=== PATIENT | female | born 1960 | race African-American/Black ===

== ENCOUNTER 2018-08-16 18:26 | Emergency (ER) | payer MEDICARE, MEDICAID ==
[~2018-08-16] VITALS: Ht 162.6 cm; Wt 117.0 kg
[2018-08-17] MEDS ORDERED: DIPHENHYDRAMINE 50MG CAPSULE PO ONE (00:45)
[2018-08-17] MEDS ORDERED: PREDNISONE 20MG TABLET PO ONE (00:45)
[2018-08-17 01:10] VITALS: BP 164/97
== END 2018-08-17 01:16 | disposition home or self-care (01) ==
LOC: ER 18:26
DX: L40.9 Psoriasis, unspecified (principal); E11.9 Type 2 diabetes mellitus without complications; I10 Essential (primary) hypertension; R60.0 Localized edema; Z86.73 Personal history of transient ischemic attack (TIA), and cerebral infarction without residual deficits; Z88.8 Allergy status to other drugs, medicaments and biological substances
CPT/HCPCS: 99283; J7512; Q0163

== ENCOUNTER 2020-05-05 17:07 | Inpatient (IN) | payer MEDICARE, MEDICAID ==
[~2020-05-05] VITALS: Ht 162.6 cm; Wt 90.3 kg
[~2020-05-05 17:07] MED LIST: AMLO10TA4 MT; ASPI-1497 MT; ATEN50TA MT; HYDR-4135 MT; HYDR25TA MT; SIMV-43 MT; SITA100T11 MT
[2020-05-05 19:30] LABS: MEAN CORPUSCULAR HEMOGLOBIN 31.4 pg (28.0-32.0); MEAN CORPUSCULAR VOLUME 98.7 fL (81.0-99.0); MEAN PLATELET VOLUME 8.4 fl (7.4-10.4); PLATELET 233 x1000/uL (130-400); RED BLOOD CELL COUNT 1.37 mill/uL (4.2-5.4); RED CELL DISTRIBUTION WIDTH 17.1 % (11.6-14.6)
[2020-05-05 19:35] LABS: CHLORIDE 108 mEq/L (98-107)
[2020-05-05 19:57] LABS: HEMATOCRIT. 13.6 % (36.0-48.0); HEMOGLOBIN. 4.3 g/dL (12.0-16.0)
[2020-05-05] MEDS ORDERED: INSULIN REGULAR (HUMULIN R) 300UNITS/3ML VIAL IV ONE (20:15)
[2020-05-05] MEDS ORDERED: ALBUTEROL (0.083%) 2.5MG/3ML NEB HHN ONE (20:15)
[2020-05-05] MEDS ORDERED: SODIUM BICARBONATE 8.4% 1 MEQ/ML 50ML SYR IV ONE (20:15)
[2020-05-05] MEDS ORDERED: CALCIUM GLUCONATE 1,000 MG in DEXT 5% WATER 100 ML IV ONE (20:15)
[2020-05-05] MEDS ORDERED: DEXTROSE 50% WATER 50ML SYRINGE IV ONE (20:15)
[2020-05-05 20:29] LABS: NUCLEATED RED BLOOD CELLS 5 /100 WBC; PLATELET ESTIMATE NORMAL
[2020-05-05] MEDS ORDERED: MAGNESIUM/ALUMINUM HYDROXIDE/SIMETHICONE 30ML UDC PO PRN (22:00)
[2020-05-05] MEDS ORDERED: ONDANSETRON HCL 4MG/2ML INJ IV PRN (22:00)
[2020-05-05] MEDS: PANTOPRAZOLE SODIUM 40 MG/VIAL IV SCH (22:00)
[2020-05-05] MEDS ORDERED: GUAIFENESIN 200MG/10ML SUGAR FREE UDC PO PRN (22:00)
[2020-05-05] MEDS ORDERED: ACETAMINOPHEN 325MG TABLET PO PRN ×2 (22:00)
[2020-05-05] MEDS ORDERED: IPRATROPIUM/ALBUTEROL 0.5-3(2.5)MG/3ML NEB NEB PRN (22:00)
[2020-05-05] MEDS ORDERED: TRAMADOL 50MG TABLET PO PRN (22:00)
[2020-05-05] MEDS ORDERED: NITROGLYCERIN 0.4MG TABLET SL SL PRN (22:00)
[2020-05-05] MEDS ORDERED: DOCUSATE SODIUM 100MG CAPSULE PO PRN (22:00)
[2020-05-05] MEDS ORDERED: DEXTROSE 50% WATER 50ML SYRINGE IV PRN (22:00)
[2020-05-05 22:27] LABS: FOLIC ACID (FOLATE) SERUM 8.4 ng/mL (>5.38)
[2020-05-05 22:41] LABS: CREATINE KINASE 85 IU/L (26-192)
[2020-05-05 22:42] LABS: CREATINE KINASE MB FRACTION 4.6 ng/mL (0.5-3.6)
[2020-05-06] VITALS (16 sets, daily range): BP systolic 119–183; BP diastolic 56–92
[2020-05-06] MEDS ORDERED: SODIUM POLYSTYRENE SULFONATE 15 G/60 ML BOT PO PRN (02:00)
[2020-05-06] MEDS ORDERED: LACTULOSE 20G/30ML UDC PO PRN (02:00)
[2020-05-06] MEDS ORDERED: GLIP5TAB12 PO (02:20)
[2020-05-06] MEDS: FUROSEMIDE 20MG/2ML VIAL IVP SCH ×3 (02:38→23:18)
[2020-05-06] MEDS: AMLODIPINE 5MG TABLET PO SCH ×3 (02:40→23:18)
[2020-05-06] MEDS ORDERED: EPOETIN ALFA-EPBX 4,000 UNIT/ML VIAL SUBCUT SCH (03:00)
[2020-05-06 03:32] LABS: MEAN CORPUSCULAR HEMOGLOBIN 31.2 pg (28.0-32.0); MEAN CORPUSCULAR VOLUME 98.4 fL (81.0-99.0); PLATELET 222 x1000/uL (130-400); RED BLOOD CELL COUNT 1.37 mill/uL (4.2-5.4); RED CELL DISTRIBUTION WIDTH 16.3 % (11.6-14.6)
[2020-05-06 03:39] LABS: HEMATOCRIT. 13.5 % (36.0-48.0); HEMOGLOBIN. 4.3 g/dL (12.0-16.0)
[2020-05-06 03:47] LABS: CHLORIDE 108 mEq/L (98-107)
[2020-05-06 03:56] LABS: CREATINE KINASE 320 IU/L (26-192)
[2020-05-06 04:15] LABS: CREATINE KINASE MB FRACTION 5.9 ng/mL (0.5-3.6)
[2020-05-06 04:17] LABS: PHOSPHORUS 13.6 mg/dL (2.5-4.9)
[2020-05-06 04:25] LABS: NUCLEATED RED BLOOD CELLS 11 /100 WBC; PLATELET ESTIMATE NORMAL
[2020-05-06] MEDS: INSULIN LISPRO 100 UNITS/ML SUBCUT SCH ×4 (08:00→21:00)
[2020-05-06] MEDS: BLOOD SUGAR DIAGNOSTIC STRIP TEST SCH ×4 (08:07→21:00)
[2020-05-06] MEDS ORDERED: PATIENT OWN MEDICATION PO SCH (09:00)
[2020-05-06] MEDS: ZINC SULFATE 220 MG ( 50 ) CAPSULE PO SCH (09:03)
[2020-05-06] MEDS: CITRIC ACID/SODIUM CITRATE SOLN 15ML UDC PO SCH ×3 (09:03→18:07)
[2020-05-06] MEDS: PANTOPRAZOLE SODIUM 40 MG/VIAL IV SCH (09:03)
[2020-05-06] MEDS: METOPROLOL TARTRATE 25MG TABLET PO SCH ×2 (09:04→23:17)
[2020-05-06] MEDS: ASCORBIC ACID 500 MG TABLET PO SCH ×2 (09:04→23:17)
[2020-05-06] MEDS ORDERED: *PATIENT'S OWN MEDICATION STORAGE XX SCH (09:30)
[2020-05-06] MEDS ORDERED: HEPARIN 1000 UNITS/ML 10ML ONE (10:27)
[2020-05-06] MEDS ORDERED: LIDOCAINE HCL 1% 20ML VIAL (Pyxis) INJ ONE (10:27)
[2020-05-06] MEDS: HYDRALAZINE HCL 50MG TABLET PO SCH (18:07)
[2020-05-07] VITALS (16 sets, daily range): BP systolic 134–175; BP diastolic 57–83
[2020-05-07] MEDS: HYDRALAZINE HCL 50MG TABLET PO SCH ×3 (04:09→17:53)
[2020-05-07] MEDS: INSULIN LISPRO 100 UNITS/ML SUBCUT SCH ×4 (08:00→21:00)
[2020-05-07] MEDS: BLOOD SUGAR DIAGNOSTIC STRIP TEST SCH ×4 (08:10→21:00)
[2020-05-07] MEDS: CITRIC ACID/SODIUM CITRATE SOLN 15ML UDC PO SCH ×3 (08:41→17:26)
[2020-05-07] MEDS: AMLODIPINE 5MG TABLET PO SCH ×2 (08:41→23:34)
[2020-05-07] MEDS: ASCORBIC ACID 500 MG TABLET PO SCH ×2 (08:41→23:34)
[2020-05-07] MEDS: ZINC SULFATE 220 MG ( 50 ) CAPSULE PO SCH (08:41)
[2020-05-07] MEDS: PANTOPRAZOLE SODIUM 40 MG/VIAL IV SCH (08:41)
[2020-05-07] MEDS: METOPROLOL TARTRATE 25MG TABLET PO SCH ×2 (08:42→23:35)
[2020-05-07] MEDS: FUROSEMIDE 20MG/2ML VIAL IVP SCH ×2 (08:42→23:35)
[2020-05-07 10:15] LABS: MEAN CORPUSCULAR HEMOGLOBIN 30.2 pg (28.0-32.0); MEAN CORPUSCULAR VOLUME 91.6 fL (81.0-99.0); PLATELET 184 x1000/uL (130-400); RED BLOOD CELL COUNT 2.04 mill/uL (4.2-5.4); RED CELL DISTRIBUTION WIDTH 16.6 % (11.6-14.6)
[2020-05-07 10:55] LABS: HEMATOCRIT 18.7 % (36.0-48.0); HEMOGLOBIN 6.1 g/dL (12.0-16.0)
[2020-05-07] MEDS: ZOLPIDEM TARTRATE 5MG TABLET PO PRN (23:34)
[2020-05-08] VITALS (16 sets, daily range): BP systolic 152–167; BP diastolic 64–83
[2020-05-08] MEDS: HYDRALAZINE HCL 50MG TABLET PO SCH ×3 (04:46→18:00)
[2020-05-08] MEDS: BLOOD SUGAR DIAGNOSTIC STRIP TEST SCH ×4 (07:30→21:00)
[2020-05-08] MEDS: INSULIN LISPRO 100 UNITS/ML SUBCUT SCH ×4 (08:00→21:00)
[2020-05-08] MEDS: ZINC SULFATE 220 MG ( 50 ) CAPSULE PO SCH (08:52)
[2020-05-08] MEDS: ASCORBIC ACID 500 MG TABLET PO SCH ×2 (08:52→22:37)
[2020-05-08] MEDS: CITRIC ACID/SODIUM CITRATE SOLN 15ML UDC PO SCH ×3 (08:52→17:41)
[2020-05-08] MEDS: PANTOPRAZOLE SODIUM 40 MG/VIAL IV SCH (08:52)
[2020-05-08] MEDS: FUROSEMIDE 20MG/2ML VIAL IVP SCH ×2 (09:00→22:36)
[2020-05-08] MEDS: AMLODIPINE 5MG TABLET PO SCH ×2 (09:00→22:37)
[2020-05-08] MEDS: METOPROLOL TARTRATE 25MG TABLET PO SCH ×2 (09:00→22:36)
[2020-05-08 11:28] LABS: HEMATOCRIT 28.2 % (36.0-48.0); HEMOGLOBIN 9.7 g/dL (12.0-16.0)
[2020-05-08] MEDS: ZOLPIDEM TARTRATE 5MG TABLET PO PRN (22:36)
[2020-05-09] VITALS (12 sets, daily range): BP systolic 119–160; BP diastolic 53–83
[2020-05-09] MEDS: HYDRALAZINE HCL 50MG TABLET PO SCH ×3 (03:43→17:32)
[2020-05-09 06:20] LABS: BASOPHILS % 0.5 % (0.0-2.0); HEMATOCRIT. 25.7 % (36.0-48.0); HEMOGLOBIN. 8.9 g/dL (12.0-16.0); LYMPHOCYTES % 8.6 % (20.0-50.0); MEAN CORPUSCULAR VOLUME 89.8 fL (81.0-99.0); MEAN PLATELET VOLUME 8.7 fl (7.4-10.4); MONOCYTES % 9.5 % (2.0-8.0); NEUTROPHILS % 71.4 % (40.0-76.0); PLATELET 144 x1000/uL (130-400); RED BLOOD CELL COUNT 2.86 mill/uL (4.2-5.4); RED CELL DISTRIBUTION WIDTH 15.4 % (11.6-14.6)
[2020-05-09 06:26] LABS: CREATINE KINASE MB FRACTION 2.2 ng/mL (0.5-3.6)
[2020-05-09] MEDS: BLOOD SUGAR DIAGNOSTIC STRIP TEST SCH ×4 (07:30→20:38)
[2020-05-09] MEDS: INSULIN LISPRO 100 UNITS/ML SUBCUT SCH ×4 (08:00→20:38)
[2020-05-09] MEDS: ZINC SULFATE 220 MG ( 50 ) CAPSULE PO SCH (09:25)
[2020-05-09] MEDS: PANTOPRAZOLE SODIUM 40 MG/VIAL IV SCH (09:26)
[2020-05-09] MEDS: FUROSEMIDE 20MG/2ML VIAL IVP SCH ×2 (09:26→20:35)
[2020-05-09] MEDS: METOPROLOL TARTRATE 25MG TABLET PO SCH ×2 (09:26→20:36)
[2020-05-09] MEDS: CITRIC ACID/SODIUM CITRATE SOLN 15ML UDC PO SCH ×3 (09:26→17:32)
[2020-05-09] MEDS: ASCORBIC ACID 500 MG TABLET PO SCH ×2 (09:26→20:35)
[2020-05-09] MEDS: AMLODIPINE 5MG TABLET PO SCH ×2 (09:26→20:36)
[2020-05-09] MEDS ORDERED: PNEUMOCOCCAL 23-VAL P-SAC VAC 0.5 ML IM ONE (20:00)
[2020-05-09] MEDS ORDERED: INFLUENZA VACCINE 05/PF 0.5 ML VIAL IM ONE (20:00)
[2020-05-09] MEDS: CLONIDINE 0.1MG TABLET PO PRN ×2 (21:35→23:41)
[2020-05-09] MEDS: EPOETIN ALFA-EPBX 4,000 UNIT/ML VIAL SUBCUT SCH (22:11)
[2020-05-09] MEDS: ZOLPIDEM TARTRATE 5MG TABLET PO PRN (22:37)
[2020-05-10] VITALS (13 sets, daily range): BP systolic 151–179; BP diastolic 62–98
[2020-05-10] MEDS: HYDRALAZINE HCL 50MG TABLET PO SCH ×3 (01:05→17:48)
[2020-05-10 06:54] LABS: BASOPHILS % 0.5 % (0.0-2.0); EOSINOPHILS % 12.6 % (0.0-5.0); HEMATOCRIT. 25.1 % (36.0-48.0); HEMOGLOBIN. 8.6 g/dL (12.0-16.0); LYMPHOCYTES % 9.5 % (20.0-50.0); MEAN CORPUSCULAR HEMOGLOBIN 31.1 pg (28.0-32.0); MEAN CORPUSCULAR VOLUME 90.8 fL (81.0-99.0); MEAN PLATELET VOLUME 8.6 fl (7.4-10.4); MONOCYTES % 10.5 % (2.0-8.0); NEUTROPHILS % 66.9 % (40.0-76.0); PLATELET 143 x1000/uL (130-400); RED BLOOD CELL COUNT 2.77 mill/uL (4.2-5.4); RED CELL DISTRIBUTION WIDTH 15.3 % (11.6-14.6)
[2020-05-10] MEDS: BLOOD SUGAR DIAGNOSTIC STRIP TEST SCH ×4 (07:30→20:52)
[2020-05-10] MEDS: INSULIN LISPRO 100 UNITS/ML SUBCUT SCH ×4 (08:00→20:38)
[2020-05-10] MEDS: PANTOPRAZOLE SODIUM 40 MG/VIAL IV SCH (08:49)
[2020-05-10] MEDS: ZINC SULFATE 220 MG ( 50 ) CAPSULE PO SCH (08:49)
[2020-05-10] MEDS: CITRIC ACID/SODIUM CITRATE SOLN 15ML UDC PO SCH ×3 (08:49→17:47)
[2020-05-10] MEDS: FUROSEMIDE 20MG/2ML VIAL IVP SCH ×2 (08:50→20:34)
[2020-05-10] MEDS: ASCORBIC ACID 500 MG TABLET PO SCH ×2 (08:50→20:31)
[2020-05-10] MEDS: AMLODIPINE 5MG TABLET PO SCH ×2 (08:50→20:32)
[2020-05-10] MEDS: METOPROLOL TARTRATE 25MG TABLET PO SCH ×2 (08:51→20:34)
[2020-05-10] MEDS: DIPHENHYDRAMINE 50MG/ML VIAL IV PRN ×2 (10:11→17:48)
[2020-05-10] MEDS: CLONIDINE 0.1MG TABLET PO PRN (14:07)
[2020-05-10] MEDS: ZOLPIDEM TARTRATE 5MG TABLET PO PRN (20:32)
[2020-05-10] MEDS: DOXAZOSIN MESYLATE 4MG TABLET PO SCH (20:33)
[2020-05-11] VITALS (11 sets, daily range): BP systolic 114–164; BP diastolic 53–106
[2020-05-11] MEDS: HYDRALAZINE HCL 50MG TABLET PO SCH ×3 (02:16→17:19)
[2020-05-11 07:24] LABS: HEMATOCRIT. 24.9 % (36.0-48.0); HEMOGLOBIN. 8.2 g/dL (12.0-16.0); MEAN CORPUSCULAR HEMOGLOBIN 30.4 pg (28.0-32.0); MEAN CORPUSCULAR VOLUME 92.1 fL (81.0-99.0); MEAN PLATELET VOLUME 9.2 fl (7.4-10.4); PLATELET 146 x1000/uL (130-400); RED CELL DISTRIBUTION WIDTH 15.4 % (11.6-14.6)
[2020-05-11] MEDS ORDERED: LIDOCAINE HCL 1% 20ML VIAL (Pyxis) INJ ONE (07:33)
[2020-05-11] MEDS ORDERED: THROMBIN (BOVINE) 5000 UNITS/VIAL TOP ONE (07:33)
[2020-05-11] MEDS ORDERED: BUPIVACAINE HCL/PF 0.5% (5MG/ML) 10ML ONE (07:33)
[2020-05-11] MEDS ORDERED: BACITRACIN 15GM TUBE TOP ONE (07:33)
[2020-05-11] MEDS ORDERED: BACITRACIN 50,000 UNITS/VIAL ONE (07:34)
[2020-05-11] MEDS ORDERED: SODIUM CHLORIDE 0.9% INJ 10ML FLUSH IVF ONE (07:34)
[2020-05-11] MEDS ORDERED: SODIUM CHLORIDE 0.9% IRRIG SOL 1,000 ML IR ONE (07:34)
[2020-05-11] MEDS ORDERED: SODIUM CHLORIDE 0.9% 1,000 ML ONE (07:34)
[2020-05-11] MEDS: BLOOD SUGAR DIAGNOSTIC STRIP TEST SCH ×5 (07:43→23:47)
[2020-05-11] MEDS: INSULIN LISPRO 100 UNITS/ML SUBCUT SCH ×5 (08:00→23:54)
[2020-05-11] MEDS ORDERED: HEPARIN SODIUM 1,000 UNIT/1ML VIAL IV ONE ×2 (08:17→11:15)
[2020-05-11] MEDS: PANTOPRAZOLE SODIUM 40 MG/VIAL IV SCH (08:33)
[2020-05-11] MEDS: METOPROLOL TARTRATE 25MG TABLET PO SCH ×3 (08:34→23:38)
[2020-05-11] MEDS: CITRIC ACID/SODIUM CITRATE SOLN 15ML UDC PO SCH ×3 (08:34→17:30)
[2020-05-11] MEDS: AMLODIPINE 5MG TABLET PO SCH ×3 (08:34→23:38)
[2020-05-11] MEDS: ZINC SULFATE 220 MG ( 50 ) CAPSULE PO SCH (08:34)
[2020-05-11] MEDS: ASCORBIC ACID 500 MG TABLET PO SCH ×3 (08:35→23:39)
[2020-05-11] MEDS: FUROSEMIDE 20MG/2ML VIAL IVP SCH ×3 (09:00→23:40)
[2020-05-11] MEDS ORDERED: MORPHINE SULFATE 2 MG/ML CPJ (NOT FOR IM USE) IV PRN (09:45)
[2020-05-11] MEDS ORDERED: PROPOFOL 200MG/20ML VIAL IV ONE (09:49)
[2020-05-11] MEDS ORDERED: MIDAZOLAM HCL 2 MG/2 ML VIAL ONE (09:49)
[2020-05-11] MEDS ORDERED: FENTANYL CITRATE/PF 50MCG/ML 2ML VIAL ONE (09:49)
[2020-05-11] MEDS ORDERED: DEXAMETHASONE 4MG/ML 1ML VIAL ONE (10:02)
[2020-05-11] MEDS ORDERED: ONDANSETRON HCL 4MG/2ML INJ ONE (10:02)
[2020-05-11] MEDS ORDERED: MEPERIDINE HCL/PF 25MG/ML CPJ IV PRN (10:15)
[2020-05-11] MEDS ORDERED: LABETALOL 5MG/ML SYR 20 MG/4 ML SYRINGE IV PRN (10:15)
[2020-05-11] MEDS ORDERED: ONDANSETRON HCL 4MG/2ML INJ IV PRN (10:15)
[2020-05-11] MEDS: HYDROMORPHONE HCL/PF 2MG/ML CPJ IV PRN ×4 (11:08→11:54)
[2020-05-11 12:12] LABS: HEPATITIS B SURFACE AB < 3.1 mIU/mL
[2020-05-11 18:23] LABS: PLATELET ESTIMATE NORMAL
[2020-05-11] MEDS: DOXAZOSIN MESYLATE 4MG TABLET PO SCH (21:00)
[2020-05-11] MEDS: EPOETIN ALFA-EPBX 4,000 UNIT/ML VIAL SUBCUT SCH (23:35)
[2020-05-12] VITALS (24 sets, daily range): BP systolic 119–171; BP diastolic 44–82
[2020-05-12] MEDS: HYDRALAZINE HCL 50MG TABLET PO SCH ×3 (01:04→17:54)
[2020-05-12 06:38] LABS: HEMATOCRIT. 24.9 % (36.0-48.0); HEMOGLOBIN. 8.3 g/dL (12.0-16.0); MEAN CORPUSCULAR HEMOGLOBIN 31.1 pg (28.0-32.0); MEAN CORPUSCULAR VOLUME 93.3 fL (81.0-99.0); PLATELET 135 x1000/uL (130-400); RED BLOOD CELL COUNT 2.66 mill/uL (4.2-5.4); RED CELL DISTRIBUTION WIDTH 15.6 % (11.6-14.6)
[2020-05-12] MEDS: BLOOD SUGAR DIAGNOSTIC STRIP TEST SCH ×4 (07:30→20:29)
[2020-05-12] MEDS: INSULIN LISPRO 100 UNITS/ML SUBCUT SCH ×4 (08:00→21:00)
[2020-05-12] MEDS: ZINC SULFATE 220 MG ( 50 ) CAPSULE PO SCH (08:06)
[2020-05-12] MEDS: FUROSEMIDE 20MG/2ML VIAL IVP SCH ×2 (08:06→20:28)
[2020-05-12] MEDS: CITRIC ACID/SODIUM CITRATE SOLN 15ML UDC PO SCH ×3 (08:06→17:50)
[2020-05-12] MEDS: AMLODIPINE 5MG TABLET PO SCH ×2 (08:07→20:28)
[2020-05-12] MEDS: ASCORBIC ACID 500 MG TABLET PO SCH ×2 (08:08→20:28)
[2020-05-12] MEDS: METOPROLOL TARTRATE 25MG TABLET PO SCH ×2 (08:08→21:46)
[2020-05-12] MEDS: PANTOPRAZOLE SODIUM 40 MG/VIAL IV SCH (08:08)
[2020-05-12] MEDS ORDERED: LIDOCAINE HCL 1% 20ML VIAL (Pyxis) INJ ONE (08:27)
[2020-05-12] MEDS ORDERED: LIDOCAINE HCL/EPINEPHRINE 1%-EPI 1:100,000 20 ML VIAL ONE (08:27)
[2020-05-12] MEDS ORDERED: SODIUM BICARBONATE 4% (2.4MEQ) 5ML VIAL IV ONE (08:27)
[2020-05-12] MEDS ORDERED: HEPARIN 1000 UNITS/ML 10ML ONE (08:29)
[2020-05-12] MEDS ORDERED: FENTANYL CITRATE/PF 50MCG/ML 2ML VIAL ONE (09:03)
[2020-05-12] MEDS ORDERED: CEFAZOLIN 1000MG PREMIX 50 ML IV ONE ×2 (09:04→09:05)
[2020-05-12] MEDS ORDERED: FENTANYL CITRATE/PF 50MCG/ML 2ML VIAL IV ONE (09:15)
[2020-05-12 14:12] LABS: PLATELET ESTIMATE NORMAL
[2020-05-12] MEDS: DOXAZOSIN MESYLATE 4MG TABLET PO SCH (20:28)
[2020-05-12] MEDS: DIPHENHYDRAMINE 50MG/ML VIAL IV PRN (21:52)
[2020-05-13] VITALS (13 sets, daily range): BP systolic 100–153; BP diastolic 48–88
[2020-05-13] MEDS: HYDRALAZINE HCL 50MG TABLET PO SCH ×3 (01:38→17:05)
[2020-05-13] MEDS: INSULIN LISPRO 100 UNITS/ML SUBCUT SCH ×4 (07:28→21:02)
[2020-05-13] MEDS: BLOOD SUGAR DIAGNOSTIC STRIP TEST SCH ×4 (07:28→20:13)
[2020-05-13] MEDS: AMLODIPINE 5MG TABLET PO SCH ×2 (10:50→21:38)
[2020-05-13] MEDS: FUROSEMIDE 20MG/2ML VIAL IVP SCH ×2 (10:51→20:12)
[2020-05-13] MEDS: PANTOPRAZOLE SODIUM 40 MG/VIAL IV SCH (10:51)
[2020-05-13] MEDS: METOPROLOL TARTRATE 25MG TABLET PO SCH ×2 (10:51→20:13)
[2020-05-13] MEDS: ZINC SULFATE 220 MG ( 50 ) CAPSULE PO SCH (10:51)
[2020-05-13] MEDS: ASCORBIC ACID 500 MG TABLET PO SCH ×2 (10:51→20:13)
[2020-05-13] MEDS: CITRIC ACID/SODIUM CITRATE SOLN 15ML UDC PO SCH ×3 (10:52→17:05)
[2020-05-13] MEDS: DIPHENHYDRAMINE 50MG/ML VIAL IV PRN ×2 (11:20→20:12)
[2020-05-13] MEDS: DOXAZOSIN MESYLATE 4MG TABLET PO SCH (20:13)
[2020-05-13] MEDS: EPOETIN ALFA-EPBX 4,000 UNIT/ML VIAL SUBCUT SCH (21:39)
[2020-05-14] VITALS (13 sets, daily range): BP systolic 110–182; BP diastolic 51–72
[2020-05-14] MEDS: HYDRALAZINE HCL 50MG TABLET PO SCH ×3 (01:03→17:07)
[2020-05-14] MEDS: BLOOD SUGAR DIAGNOSTIC STRIP TEST SCH ×4 (07:41→20:18)
[2020-05-14] MEDS: INSULIN LISPRO 100 UNITS/ML SUBCUT SCH ×4 (07:42→20:32)
[2020-05-14] MEDS: AMLODIPINE 5MG TABLET PO SCH ×2 (08:38→22:03)
[2020-05-14] MEDS: ZINC SULFATE 220 MG ( 50 ) CAPSULE PO SCH (08:38)
[2020-05-14] MEDS: ASCORBIC ACID 500 MG TABLET PO SCH ×2 (08:38→20:31)
[2020-05-14] MEDS: METOPROLOL TARTRATE 25MG TABLET PO SCH ×2 (08:38→20:31)
[2020-05-14] MEDS: CITRIC ACID/SODIUM CITRATE SOLN 15ML UDC PO SCH ×3 (08:39→17:06)
[2020-05-14] MEDS: PANTOPRAZOLE SODIUM 40 MG/VIAL IV SCH (08:39)
[2020-05-14] MEDS: FUROSEMIDE 20MG/2ML VIAL IVP SCH ×2 (08:39→20:31)
[2020-05-14] MEDS: DIPHENHYDRAMINE 50MG/ML VIAL IV PRN (08:39)
[2020-05-14] MEDS: DOXAZOSIN MESYLATE 4MG TABLET PO SCH (20:31)
[2020-05-15 00:44] VITALS: BP 141/57
[2020-05-15] MEDS: HYDRALAZINE HCL 50MG TABLET PO SCH ×3 (01:30→17:20)
[2020-05-15 04:00] VITALS: BP 133/56
[2020-05-15] MEDS: INSULIN LISPRO 100 UNITS/ML SUBCUT SCH ×4 (06:28→20:02)
[2020-05-15] MEDS: BLOOD SUGAR DIAGNOSTIC STRIP TEST SCH ×4 (06:28→20:02)
[2020-05-15 08:00] VITALS: BP 147/47
[2020-05-15] MEDS: FUROSEMIDE 20MG/2ML VIAL IVP SCH ×2 (08:48→21:04)
[2020-05-15] MEDS: ZINC SULFATE 220 MG ( 50 ) CAPSULE PO SCH (08:48)
[2020-05-15] MEDS: PANTOPRAZOLE SODIUM 40 MG/VIAL IV SCH (08:48)
[2020-05-15] MEDS: METOPROLOL TARTRATE 25MG TABLET PO SCH ×2 (08:49→21:04)
[2020-05-15] MEDS: ASCORBIC ACID 500 MG TABLET PO SCH ×2 (08:49→21:04)
[2020-05-15] MEDS: CITRIC ACID/SODIUM CITRATE SOLN 15ML UDC PO SCH ×3 (08:50→17:20)
[2020-05-15] MEDS: AMLODIPINE 5MG TABLET PO SCH ×2 (09:15→21:04)
[2020-05-15 12:00] VITALS: BP 134/42
[2020-05-15 16:00] VITALS: BP 160/50
[2020-05-15 20:00] VITALS: BP 143/35
[2020-05-15] MEDS: DOXAZOSIN MESYLATE 4MG TABLET PO SCH (21:04)
[2020-05-16] VITALS: BP 103/48
[2020-05-16] MEDS: HYDRALAZINE HCL 50MG TABLET PO SCH ×2 (01:07→10:00)
[2020-05-16 04:00] VITALS: BP 108/52
[2020-05-16] MEDS: BLOOD SUGAR DIAGNOSTIC STRIP TEST SCH ×3 (06:37→17:10)
[2020-05-16] MEDS: INSULIN LISPRO 100 UNITS/ML SUBCUT SCH ×2 (06:38→12:40)
[2020-05-16] MEDS: FUROSEMIDE 20MG/2ML VIAL IVP SCH (08:24)
[2020-05-16] MEDS: PANTOPRAZOLE SODIUM 40 MG/VIAL IV SCH (08:24)
[2020-05-16] MEDS: ZINC SULFATE 220 MG ( 50 ) CAPSULE PO SCH (08:24)
[2020-05-16] MEDS: METOPROLOL TARTRATE 25MG TABLET PO SCH (08:24)
[2020-05-16] MEDS: CITRIC ACID/SODIUM CITRATE SOLN 15ML UDC PO SCH ×3 (08:24→17:00)
[2020-05-16] MEDS: ASCORBIC ACID 500 MG TABLET PO SCH (08:24)
[2020-05-16] MEDS: AMLODIPINE 5MG TABLET PO SCH (08:25)
[2020-05-16 09:00] VITALS: BP 138/50
[2020-05-16 10:59] VITALS: BP 113/59
[2020-05-16 12:00] VITALS: BP 153/48
[2020-05-16 16:00] VITALS: BP 139/51
== END 2020-05-16 17:50 | disposition home or self-care (01) | DRG 673 ==
LOC: ER 17:07 → ENRESERV 21:54 → 5EST 05-06 01:36 → 8WST 05-14 21:34
PROVIDERS: ADMIT Internal Medicine; ATTEND Internal Medicine
PROC: 30233N1 Transfusion of Nonautologous Red Blood Cells into Peripheral Vein, Percutaneous Approach (ICD-10-PCS; 2020-05-05)
PROC: 5A1D70Z Performance of Urinary Filtration, Intermittent, Less than 6 Hours Per Day (ICD-10-PCS; 2020-05-06)
PROC: 02HV33Z Insertion of Infusion Device into Superior Vena Cava, Percutaneous Approach (ICD-10-PCS; 2020-05-06)
PROC: B5181ZA Fluoroscopy of Superior Vena Cava using Low Osmolar Contrast, Guidance (ICD-10-PCS; 2020-05-06)
PROC: 5A1D70Z Performance of Urinary Filtration, Intermittent, Less than 6 Hours Per Day (ICD-10-PCS; 2020-05-08)
PROC: 03180ZD Bypass Left Brachial Artery to Upper Arm Vein, Open Approach (ICD-10-PCS; principal; 2020-05-11)
PROC: 5A1D70Z Performance of Urinary Filtration, Intermittent, Less than 6 Hours Per Day (ICD-10-PCS; 2020-05-11)
PROC: 0JH63XZ Insertion of Tunneled Vascular Access Device into Chest Subcutaneous Tissue and Fascia, Percutaneous Approach (ICD-10-PCS; 2020-05-12)
PROC: 02HV33Z Insertion of Infusion Device into Superior Vena Cava, Percutaneous Approach (ICD-10-PCS; 2020-05-12)
PROC: B5181ZA Fluoroscopy of Superior Vena Cava using Low Osmolar Contrast, Guidance (ICD-10-PCS; 2020-05-12)
PROC: B548ZZA Ultrasonography of Superior Vena Cava, Guidance (ICD-10-PCS; 2020-05-12)
PROC: 5A1D70Z Performance of Urinary Filtration, Intermittent, Less than 6 Hours Per Day (ICD-10-PCS; 2020-05-13)
PROC: 5A1D70Z Performance of Urinary Filtration, Intermittent, Less than 6 Hours Per Day (ICD-10-PCS; 2020-05-16)
DX: I12.0 Hypertensive chronic kidney disease with stage 5 chronic kidney disease or end stage renal disease (principal); N17.0 Acute kidney failure with tubular necrosis; N18.6 End stage renal disease; E43 Unspecified severe protein-calorie malnutrition; E87.2 Acidosis; M62.82 Rhabdomyolysis; D63.1 Anemia in chronic kidney disease; D50.9 Iron deficiency anemia, unspecified; N28.1 Cyst of kidney, acquired; E11.22 Type 2 diabetes mellitus with diabetic chronic kidney disease; E11.319 Type 2 diabetes mellitus with unspecified diabetic retinopathy without macular edema; E83.51 Hypocalcemia; E87.5 Hyperkalemia; D25.9 Leiomyoma of uterus, unspecified; E66.9 Obesity, unspecified; Z20.828 Contact with and (suspected) exposure to other viral communicable diseases; Z79.4 Long term (current) use of insulin; Z68.34 Body mass index [BMI] 34.0-34.9, adult; Z88.8 Allergy status to other drugs, medicaments and biological substances; Z79.899 Other long term (current) drug therapy; Z99.2 Dependence on renal dialysis; Z86.73 Personal history of transient ischemic attack (TIA), and cerebral infarction without residual deficits; R74.01 Elevation of levels of liver transaminase levels
CPT/HCPCS: 36415; 36558; 36589; 71045; 76770; 76830; 76856; 76937; 77001; 80048; 80053; 80061; 80076; 82270; 82550; 82553; 82607; 82746; 82962; 83036; 83540; 83550; 83735; 84100; 84132; 84450; 84460; 84484; 85014; 85018; 85025; 85027; 86705; 86706; 86803; 86850; 86900; 86920; 87340; 87426; 87635; 90686; 90732; 93005; 93306; 93970; 94640; 99152; 99153; 99291; C1750; C1752; C1769; C1887; C9113; J0610; J0690; J0885; J1100; J1170; J1200; J1644; J1815; J1940; J2250; J2270; J2405; J2704; J3010; J3490; J7030; J7060; L8514; P9016; G0500

== ENCOUNTER 2020-05-24 09:19 | Emergency (ER) | payer MEDICARE, MEDICAID ==
[~2020-05-24] VITALS: Ht 160 cm; Wt 79.0 kg
[~2020-05-24 09:19] MED LIST changes: +GLIP5TAB12 PO; -HYDR25TA MT
[2020-05-24] MEDS ORDERED: CLONIDINE 0.2MG TABLET PO ONE (12:00)
[2020-05-24 12:39] LABS: BASOPHILS % 1.2 % (0.0-2.0); EOSINOPHILS % 10.1 % (0.0-5.0); HEMATOCRIT. 26.7 % (36.0-48.0); HEMOGLOBIN. 8.9 g/dL (12.0-16.0); LYMPHOCYTES % 12.5 % (20.0-50.0); MEAN CORPUSCULAR HEMOGLOBIN 30.6 pg (28.0-32.0); MEAN CORPUSCULAR VOLUME 92.1 fL (81.0-99.0); MEAN PLATELET VOLUME 7.6 fl (7.4-10.4); MONOCYTES % 14.4 % (2.0-8.0); NEUTROPHILS % 61.8 % (40.0-76.0); PLATELET 170 x1000/uL (130-400)
[2020-05-24 12:43] LABS: CHLORIDE 102 mEq/L (98-107)
[2020-05-24 13:08] LABS: PROTHROMBIN TIME 10.9 sec (9.6-11.0)
[2020-05-24] MEDS ORDERED: VANCOMYCIN 1 G PREMIX 200 ML IV ONE (14:45)
[2020-05-24] MEDS ORDERED: CEFTRIAXONE 1 G PREMIX 50 ML IV ONE (14:45)
[2020-05-24] MEDS ORDERED: ONDANSETRON HCL 4MG/2ML INJ IV PRN (15:30)
[2020-05-24] MEDS ORDERED: NITROGLYCERIN 0.4MG TABLET SL SL PRN (15:30)
[2020-05-24] MEDS ORDERED: DIPHENHYDRAMINE 50MG/ML VIAL IV PRN (15:30)
[2020-05-24] MEDS ORDERED: TRAMADOL 50MG TABLET PO PRN (15:30)
[2020-05-24] MEDS ORDERED: ZOLPIDEM TARTRATE 5MG TABLET PO PRN (15:30)
[2020-05-24] MEDS ORDERED: CLONIDINE 0.1MG TABLET PO PRN (15:30)
[2020-05-24] MEDS ORDERED: LORAZEPAM 0.5MG TABLET PO PRN (15:30)
[2020-05-24] MEDS ORDERED: GUAIFENESIN 200MG/10ML SUGAR FREE UDC PO PRN (15:30)
[2020-05-24] MEDS ORDERED: ACETAMINOPHEN 325MG TABLET PO PRN ×2 (15:30)
[2020-05-24] MEDS ORDERED: IPRATROPIUM/ALBUTEROL 0.5-3(2.5)MG/3ML NEB NEB PRN (15:30)
[2020-05-24] MEDS ORDERED: DEXTROSE 50% WATER 50ML SYRINGE IV PRN (15:30)
[2020-05-24] MEDS ORDERED: MAGNESIUM/ALUMINUM HYDROXIDE/SIMETHICONE 30ML UDC PO PRN (15:30)
[2020-05-24 16:00] VITALS: BP 162/58
[2020-05-24] MEDS ORDERED: ENOXAPARIN 30MG/0.3ML SYR SUBCUT SCH (16:00)
[2020-05-24] MEDS ORDERED: AMLODIPINE 10MG TABLET PO SCH (16:00)
[2020-05-24] MEDS ORDERED: SEVELAMER CARBONATE 800 MG TABLET PO SCH (17:00)
[2020-05-24] MEDS ORDERED: BLOOD SUGAR DIAGNOSTIC STRIP TEST SCH (17:00)
[2020-05-24] MEDS ORDERED: INSULIN LISPRO 100 UNITS/ML SUBCUT SCH (18:20)
[2020-05-24] MEDS ORDERED: FAMOTIDINE 20MG TABLET PO SCH (20:00)
[2020-05-24] MEDS ORDERED: ASCORBIC ACID 500 MG TABLET PO SCH (21:00)
[2020-05-24] MEDS ORDERED: METOPROLOL TARTRATE 25MG TABLET PO SCH (21:00)
[2020-05-24] MEDS ORDERED: HYDRALAZINE HCL 50MG TABLET PO SCH (22:00)
[2020-05-25] MEDS ORDERED: ZINC SULFATE 220 MG ( 50 ) CAPSULE PO SCH (09:00)
[2020-05-25] MEDS ORDERED: ASPIRIN 81MG EC TABLET PO SCH (09:00)
== END 2020-05-24 17:10 | disposition left against medical advice (07) ==
LOC: ER 09:19 → CANBEDREQ 17:36
DX: M79.89 Other specified soft tissue disorders (principal); R50.9 Fever, unspecified; I12.0 Hypertensive chronic kidney disease with stage 5 chronic kidney disease or end stage renal disease; E11.22 Type 2 diabetes mellitus with diabetic chronic kidney disease; N18.6 End stage renal disease; I82.401 Acute embolism and thrombosis of unspecified deep veins of right lower extremity; E78.00 Pure hypercholesterolemia, unspecified; E83.51 Hypocalcemia; I16.1 Hypertensive emergency; E44.0 Moderate protein-calorie malnutrition; Z88.5 Allergy status to narcotic agent; Z79.899 Other long term (current) drug therapy; Z79.82 Long term (current) use of aspirin; Z86.73 Personal history of transient ischemic attack (TIA), and cerebral infarction without residual deficits; Z98.890 Other specified postprocedural states; Z99.2 Dependence on renal dialysis; Z20.828 Contact with and (suspected) exposure to other viral communicable diseases
CPT/HCPCS: 36415; 71045; 80053; 83036; 83605; 84145; 85025; 85610; 85730; 87040; 93005; 93970; 93971; 96365; 96367; 99285; J0696; J3370; U0003

== ENCOUNTER → 2020-08-05 | Outpatient (CLI) | payer MEDICARE, MEDICAID | END | disposition home or self-care (01) | LOC: LAB 13:13 | PROVIDERS: ATTEND Surgery Vascular Surgery | DX: Z20.822 Contact with and (suspected) exposure to COVID-19 (principal); N18.6 End stage renal disease | CPT/HCPCS: 87426 ==

== ENCOUNTER → 2020-08-08 | Day surgery (SDC) | payer MEDICARE, MEDICAID ==
[~2020-08-08] VITALS: Ht 162.6 cm; Wt 80.3 kg
[~2020-08-08] MED LIST changes: +ACETAMINOPHEN 500MG TABLET PO PRN; +BACITRACIN 15GM TUBE TOP ONE; +BACITRACIN 50,000 UNITS/VIAL ONE; +BUPIVACAINE HCL/PF 0.5% (5MG/ML) 10ML ONE; +CALC667C PO; +FOLI0.8T23 PO; +FURO40TA5 PO; +GLYCOPYRROLATE 0.2 MG/ML 2ML VIAL ONE; +HEPARIN 1000 UNITS/ML 10ML ONE; +HEPARIN SODIUM 1,000 UNIT/1ML VIAL IV NR; +HEPARIN SODIUM 1,000 UNIT/1ML VIAL IV ONE; +HYDR100T26 PO; +HYDRALAZINE 20MG/ML VIAL IV NR; +HYDROMORPHONE HCL/PF 2MG/ML (OR) ONE; +LIDOCAINE HCL 1% 20ML VIAL (Pyxis) INJ ONE; +MORPHINE SULFATE 2 MG/ML CPJ (NOT FOR IM USE) IV PRN; +ONDANSETRON HCL 4MG/2ML INJ IV PRN; +SODIUM CHLORIDE 0.9% 500 ML IV ONE; +THROMBIN (BOVINE) 5000 UNITS/VIAL TOP ONE
[2020-08-08 10:49] LABS: BASOPHILS % 0.9 % (0.0-2.0); EOSINOPHILS % 4.6 % (0.0-5.0); HEMATOCRIT. 38.9 % (36.0-48.0); HEMOGLOBIN. 12.6 g/dL (12.0-16.0); LYMPHOCYTES % 18.9 % (20.0-50.0); MEAN CORPUSCULAR HEMOGLOBIN 31.5 pg (28.0-32.0); MONOCYTES % 7.7 % (2.0-8.0); NEUTROPHILS % 67.9 % (40.0-76.0); PLATELET 214 x1000/uL (130-400); RED CELL DISTRIBUTION WIDTH 15.8 % (11.6-14.6)
[2020-08-08 11:01] LABS: PROTHROMBIN TIME 10.4 sec (9.6-11.0)
== END | disposition home or self-care (01) ==
LOC: OR 10:14
PROVIDERS: ATTEND Surgery Vascular Surgery
DX: I12.0 Hypertensive chronic kidney disease with stage 5 chronic kidney disease or end stage renal disease (principal); N18.6 End stage renal disease; E11.22 Type 2 diabetes mellitus with diabetic chronic kidney disease; Z79.82 Long term (current) use of aspirin; Z79.899 Other long term (current) drug therapy; Z98.890 Other specified postprocedural states; Z82.49 Family history of ischemic heart disease and other diseases of the circulatory system
CPT/HCPCS: 36415; 36819; 80048; 85025; 85610; 85730; 93005; J0360; J1170; J1644; J3490; J7040; J7042

== ENCOUNTER 2021-02-08 16:07 | Emergency (ER) | payer MEDICARE, MEDICAID ==
[~2021-02-08] VITALS: Ht 157.5 cm; Wt 79.0 kg
[~2021-02-08 16:07] MED LIST changes: -ACETAMINOPHEN 500MG TABLET PO PRN; -BACITRACIN 15GM TUBE TOP ONE; -BACITRACIN 50,000 UNITS/VIAL ONE; -BUPIVACAINE HCL/PF 0.5% (5MG/ML) 10ML ONE; -GLIP5TAB12 PO; -GLYCOPYRROLATE 0.2 MG/ML 2ML VIAL ONE; -HEPARIN 1000 UNITS/ML 10ML ONE; -HEPARIN SODIUM 1,000 UNIT/1ML VIAL IV NR; -HEPARIN SODIUM 1,000 UNIT/1ML VIAL IV ONE; -HYDR-4135 MT; -HYDRALAZINE 20MG/ML VIAL IV NR; -HYDROMORPHONE HCL/PF 2MG/ML (OR) ONE; -LIDOCAINE HCL 1% 20ML VIAL (Pyxis) INJ ONE; -MORPHINE SULFATE 2 MG/ML CPJ (NOT FOR IM USE) IV PRN; -ONDANSETRON HCL 4MG/2ML INJ IV PRN; -SIMV-43 MT; -SITA100T11 MT; -SODIUM CHLORIDE 0.9% 500 ML IV ONE; -THROMBIN (BOVINE) 5000 UNITS/VIAL TOP ONE
[2021-02-08 16:53] VITALS: BP 103/78
== END 2021-02-08 18:59 | disposition left against medical advice (07) ==
LOC: ER 16:07
DX: R14.0 Abdominal distension (gaseous) (principal); I12.0 Hypertensive chronic kidney disease with stage 5 chronic kidney disease or end stage renal disease; N18.6 End stage renal disease; D63.1 Anemia in chronic kidney disease; Z99.2 Dependence on renal dialysis; Z88.8 Allergy status to other drugs, medicaments and biological substances
CPT/HCPCS: 99281

== ENCOUNTER 2021-02-09 15:13 | Emergency (ER) | payer MEDICARE, MEDICAID ==
[~2021-02-09] VITALS: Ht 157.5 cm; Wt 79.0 kg
[2021-02-09 21:30] LABS: HEMATOCRIT. 38.9 % (36.0-48.0); HEMOGLOBIN. 13.1 g/dL (12.0-16.0); MEAN CORPUSCULAR HEMOGLOBIN 32.8 pg (28.0-32.0); MEAN CORPUSCULAR VOLUME 97.6 fL (81.0-99.0); PLATELET 87 x1000/uL (130-400); RED BLOOD CELL COUNT 3.99 mill/uL (4.2-5.4); RED CELL DISTRIBUTION WIDTH 16.5 % (11.6-14.6)
[2021-02-09 21:45] LABS: CHLORIDE 103 mEq/L (98-107)
[2021-02-09 21:49] LABS: ETHANOL BLOOD < 10 mg/dL
[2021-02-09 22:02] LABS: NUCLEATED RED BLOOD CELLS 1 /100 WBC; PLATELET ESTIMATE DECREASED
[2021-02-09 23:45] VITALS: BP 136/92
== END 2021-02-09 23:46 | disposition home or self-care (01) ==
LOC: ER 15:13
DX: R18.8 Other ascites (principal); R14.0 Abdominal distension (gaseous); I12.0 Hypertensive chronic kidney disease with stage 5 chronic kidney disease or end stage renal disease; N18.6 End stage renal disease; D63.1 Anemia in chronic kidney disease; Z99.2 Dependence on renal dialysis; Z79.82 Long term (current) use of aspirin
CPT/HCPCS: 36415; 74176; 80053; 80320; 85025; 99284; G0480